=== PATIENT | male | born 1995 | race Asian ===

== ENCOUNTER 2018-02-23 21:56 | Emergency (ER) | payer BC ==
--- NOTE | 2018-02-23 22:36 | ED ---
Abdominal Pain/Male - HPI Summary HPI Summary: This is Ryan leos, documenting for attending Sanaz Hyatt MD. Pt is a 22 y/o M c/o intermittent abd pain onset ~2200, this date. Pain is localized in the LLQ. Per pesticide control inspector, pain is rated a 6/10 and described as aching. Assoc. Sx: Abd pain, Loose stool, dark urine, stripes of blood in stool , vomiting. Patient LWBS earlier but returned with same Sx because they were worsening, resolved now. He states he had diverticulum surgery 3 years ago due to internal bleeding. His last stool was passed this AM. - History of Current Complaint Chief Complaint: EDAbdPain Stated Complaint: ABD PAIN Time Seen by Provider: 02/23/18 22:11 Hx Obtained From: Patient Onset/Duration: Sudden Onset, Lasting Hours Timing: Intermittent Pain Intensity: 5 Pain Scale Used: 0-10 Numeric Location: Discrete At: LLQ Character: Other: - aching Alleviating Factor(s): Position Associated Signs And Symptoms: Positive: Blood in Stool, Urinary Symptoms - dark urine, Vomiting - Allergies/Home Medications Allergies/Adverse Reactions: Allergies Allergy/AdvReac Type Severity Reaction Status Date / Time No Known Allergies Allergy Verified 02/23/18 22:22 PMH/Surg Hx/FS Hx/Imm Hx Endocrine/Hematology History: Denies: Hx Diabetes Cardiovascular History: Denies: Hx Coronary Artery Disease, Hx Hypertension Infectious Disease History: No Infectious Disease History: Denies: Traveled Outside the [place] in Last 30 Days - Family History Known Family History: Positive: Cardiac Disease Negative: Hypertension, Diabetes - Social History Occupation: Student Lives: With Family Alcohol Use: Rare Substance Use Type: Reports: None Smoking Status (MU): Never Smoked Tobacco Review of Systems Positive: Abdominal Pain - LLQ, Vomiting Positive: other - POS: Loose stool, blood stripes in stool, dark urine All Other Systems Reviewed And Are Negative: Yes Physical Exam - Summary Physical Exam Summary: VITAL SIGNS: Reviewed. GENERAL: Patient is a well-developed and nourished male who is lying comfortable in the stretcher. Patient is not in any acute respiratory distress. HEAD AND FACE: No signs of trauma. No ecchymosis, hematomas or skull depressions. No sinus tenderness. EYES: PERRLA, EOMI x 2, No injected conjunctiva, no nystagmus. EARS: Hearing grossly intact. Ear canals and tympanic membranes are within normal limits. MOUTH: Oropharynx within normal limits. NECK: Supple, trachea is midline, no adenopathy, no JVD, no carotid bruit, no c- spine tenderness, neck with full ROM. CHEST: Symmetric, no tenderness at palpation LUNGS: Clear to auscultation bilaterally. No wheezing or crackles. CVS: Regular rate and rhythm, S1 and S2 present, no murmurs or gallops appreciated. ABDOMEN: Soft, non-tender. No signs of distention. No rebound no guarding, and no masses palpated. Bowel sounds are normal. EXTREMITIES: FROM in all major joints, no edema, no cyanosis or clubbing. NEURO: Alert and oriented x 3. No acute neurological deficits. Speech is normal and follows commands. SKIN: Dry and warm Triage Information Reviewed: Yes Vital Signs On Initial Exam: Initial Vitals Temp Pulse Resp BP Pulse Ox 98.4 F 72 16 138/82 99 02/23/18 21:59 02/23/18 21:59 02/23/18 21:59 02/23/18 21:59 02/23/18 21:59 Vital Signs Reviewed: Yes Diagnostics - Vital Signs Vital Signs Temp Pulse Resp BP Pulse Ox 02/23/18 22:21 91 134/87 98 02/23/18 21:59 98.4 F 72 16 138/82 99 - Laboratory Result Diagrams: 02/23/18 23:04 02/23/18 23:06 Lab Statement: Any lab studies that have been ordered have been reviewed, and results considered in the medical decision making process. - Radiology Abdomen XR Xray Interpretation: No Acute Changes - IMPRESSION: no acute process. Radiology Interpretation Completed By: ED Physician - ED physician reviewed this radiology report. Abdominal Pain Fem Course/Dx - Course Course Of Treatment: Provider saw patient and ordered an abd XR - results, negative. A 3 mm L urethral stone was seen in the renal track. Will be referred to urology. - Diagnoses Provider Diagnoses: Urethral stone, Renal colic Discharge - Sign-Out/Discharge Documenting (check all that apply): Patient Departure - Discharge Plan Condition: Stable Disposition: HOME Prescriptions: oxyCODONE/Acetamin 5/325 MG* [Percocet 5/325 TAB*] 1 tab PO Q6H PRN #14 tab MDD 4 PRN Reason: Pain Tamsulosin CAP* [Flomax CAP*] 0.4 mg PO BEDTIME #7 cap Patient Education Materials: Renal Colic (ED) Referrals: [facility] [Outside] - 2 Days Luis Manuel Oliva MD [Medical Doctor] - 2 Days Additional Instructions: RETURN TO THE EMERGENCY DEPARTMENT FOR CHANGING OR WORSENING SYMPTOMS. FOLLOW UP WITH PCP IN 1-2 DAYS. - Attestation Statements Document Initiated by Scribe: Yes Documenting Scribe: Ryan Galloway Provider For Whom Scribe is Documenting (Include Credential): Sanaz Hyatt MD Scribe Attestation: Ryan Garcia, scribed for Sanaz Hyatt MD on 02/24/18 at 0156.
[2018-02-23] MEDS ORDERED: NS 0.9% 1000 ML* 1,000 ML IV ONE (22:39)
[2018-02-23 23:21] LABS: ABS Basophils 0 10^3/ul (0-0.2); ABS Eosinophils 0 10^3/ul (0-0.6); ABS Lymphocytes 0.7 10^3/ul (1.0-4.8); ABS Monocytes 0.4 10^3/ul (0-0.8); ABS Neutrophils 9.2 10^3/ul (1.5-7.7); ABS Nucleated RBC 0 10^3/ul; Eosinophil % 0 % (0-6); Hematocrit 45 % (42-52); Hemoglobin 15.1 g/dl (14.0-18.0); Lymphocyte % 7.1 % (25-47); Mean Corpuscular HGB Conc 33 g/dl (31-36); Mean Corpuscular Hemoglobin 28 pg (27-31); Mean Corpuscular Volume 85 fL (80-94); Nucleated Red Blood Cells % 0.1; Platelet Count 159 10^3/ul (150-450); Red Blood Count 5.35 10^6/ul (4.00-5.40); Red Cell Distribution Width 13 % (10.5-15); White Blood Count 10.3 10^3/ul (3.5-10.8)
[2018-02-24 00:27] LABS: Urine Appearance Clear; Urine Blood 3+ (Negative); Urine Color Yellow; Urine Ketones 1+ (Negative); Urine Protein Negative (Negative); Urine Red Blood Cell 3+(>10/hpf) (Absent); Urine Specific Gravity 1.011 (1.010-1.030); Urine Urobilinogen Negative (Negative); Urine White Blood Cell Absent (Absent)
[2018-02-24] MEDS ORDERED: Ketorolac INJ* 30 MG/ML 1 ML VIAL IV PUSH ONE (00:34)
--- NOTE | 2018-02-24 01:41 | RAD ---
EXAM: CT Abdomen and Pelvis Without Intravenous Contrast CLINICAL HISTORY: 22 years old, male; Pain; Abdominal pain; Acute; Prior surgery; Surgery date: 6+ months; Surgery type: 3 yrs ago meckels diverticulum SX in [place]; Patient HX: Left mid and lower acute abd pain started at 1700 hrs 02/23/2018 TECHNIQUE: Axial computed tomography images of the abdomen and pelvis without intravenous contrast. All CT scans at this facility use at least one of these dose optimization techniques: automated exposure control; mA and/or kV adjustment per patient size (includes targeted exams where dose is matched to clinical indication); or iterative reconstruction. Coronal and sagittal reformatted images were created and reviewed. COMPARISON: No relevant prior studies available. FINDINGS: Lung bases: Normal. No mass. No consolidation. ABDOMEN: Liver: Normal. Normal size. No masses. Gallbladder and bile ducts: Normal. No radiopaque calculi. No ductal dilation. Pancreas: Normal. No ductal dilation. Spleen: Normal. No splenomegaly. Adrenals: Normal. No mass. Kidneys and ureters: Partially duplicated left renal collecting system with pelvocaliectasis of both upper and lower moieties with associated subtle left perinephric and periureteral stranding. Ureters anastomose in the distal one third with a 0.3 cm calculus seen distal third left ureter just proximal to the UVJ (series 601, image 52). No right pelvocaliectasis or renal calculi. Stomach and bowel: Incompletely distended grossly normal stomach. Normal caliber small bowel. Findings from prior Meckel's diverticulum repair. No colonic masses or segmental wall thickening. PELVIS: Appendix: Nonvisualized appendix with no secondary findings to suggest appendicitis. Bladder: Thin-walled bladder with no focal nodularity, perivesicular stranding, or calcifications. Reproductive: Normal sized prostate. Normal seminal vesicles. ABDOMEN and PELVIS: Intraperitoneal space: Normal. No pneumoperitoneum. No ascities. Bones/joints: No fractures. No suspicious bone lesions. Soft tissues: Normal. No hernias. Vasculature: Normal. No abdominal aortic aneurysm. Lymph nodes: Normal. No enlarged lymph nodes. IMPRESSION: 1. Mildly obstructing 3 mm calculus distal third left ureter. 2. Partially duplicated left renal collecting system.
[2018-02-24] MEDS ORDERED: Tamsulosin CAP* 0.4 MG PO ONE (01:45)
[2018-02-24 02:40] VITALS: BP 118/76
--- NOTE | 2018-02-24 08:13 | RAD ---
Indication: Abdominal pain. Previous surgery for Meckel's diverticulum in 2015. LEFT lower quadrant pain. Comparison: February 24, 2018 CT. Technique: Supine and upright views of the abdomen. Report: Negative for free air beneath the diaphragm. Normal bowel gas pattern. No suspicious calcifications or mass effect. Unremarkable soft tissue contours. IMPRESSION: #. Negative exam. #. Small distal LEFT ureteral stone documented on subsequent CT of February 24, 2018 is not conspicuous radiographically.
== END 2018-02-24 02:20 | disposition home or self-care (01) ==
LOC: ED 21:56
DX: N20.1 Calculus of ureter (principal); N23 Unspecified renal colic
CPT/HCPCS: 36415; 74019; 74176; 80053; 81003; 81015; 83690; 83735; 85025; 86140; 87086; 96361; 96374; 99284; J1885